=== PATIENT | female | born 1985 | race Caucasian/White ===

== ENCOUNTER 2017-12-07 10:35 | Day surgery (SDC) | payer OTHER ==
[2017-12-07] MEDS ORDERED: ROPIVACAINE 0.5 % 30 ML VIAL ×2 (12:51)
[2017-12-07] MEDS ORDERED: FENTAnyl 50 MCG/ML VIAL ×2 (12:54)
[2017-12-07] MEDS: LIDOCAINE 1%/EPI 30 ML INJ ×2 (13:30)
[2017-12-07] MEDS ORDERED: CEFAZOLIN 1 GM INJ ×2 (13:47)
[2017-12-07] MEDS ORDERED: ROCURONIUM 50 MG INJ ×2 (13:47)
[2017-12-07] MEDS ORDERED: METOCLOPRAMIDE 10 MG INJ ×2 (13:47)
[2017-12-07] MEDS ORDERED: KETOROLAC 30 MG INJ ×2 (13:47)
[2017-12-07] MEDS ORDERED: PROPOFOL 20 ML ×2 (13:47)
[2017-12-07] MEDS ORDERED: ONDANSETRON 4 MG INJ ×2 (13:47)
[2017-12-07] MEDS ORDERED: SUGAMMADEX SODIUM 200 MG/2 ML VIAL IV ×2 (13:48)
[2017-12-07] MEDS ORDERED: DEXAMETHASONE 4 MG/ML 1 ML INJ ×2 (13:48)
[2017-12-07] MEDS ORDERED: MEPERIDINE 100 MG INJ ×2 (13:56)
[2017-12-07] MEDS ORDERED: LACTATED RINGER'S 1,000 ML IV ×2 (13:57)
[2017-12-07] MEDS ORDERED: ONDANSETRON 4 MG INJ IV ×4 (14:00)
[2017-12-07] MEDS ORDERED: ACETAMINOPHEN 325 MG TAB PO ×2 (14:00)
[2017-12-07] MEDS ORDERED: EPHEDrine SULFATE 50 MG/5 ML SYG IV ×2 (14:00)
[2017-12-07] MEDS ORDERED: FENTAnyl 50 MCG/ML VIAL IV ×4 (14:00)
[2017-12-07] MEDS ORDERED: DIPHENHYDRAMINE 50 MG INJ IV ×2 (14:00)
[2017-12-07] MEDS ORDERED: MEPERIDINE 25 MG INJ IV ×2 (14:00)
[2017-12-07] MEDS ORDERED: METOCLOPRAMIDE 10 MG INJ IV ×2 (14:00)
[2017-12-07] MEDS ORDERED: HYDROmorphONE (0.2 MG/ML) 10ML SYG IV ×4 (14:00)
[2017-12-07] MEDS ORDERED: KETOROLAC 30 MG INJ IV ×4 (14:00→14:30)
[2017-12-07] MEDS: FENTAnyl 50 MCG/ML VIAL IV ×2 (14:58)
[2017-12-10] MEDS ORDERED: IBUPROFEN 600 MG TAB PO ×2 (15:00)
== END 2018-01-01 15:48 | disposition home or self-care (01) ==
LOC: SDS 01-01 15:48
DX: Z30.2 Encounter for sterilization (principal); N80.9 Endometriosis, unspecified; N73.6 Female pelvic peritoneal adhesions (postinfective)
CPT/HCPCS: 58670; 84703